=== PATIENT | female | born 1990 | race Two or more races ===

== ENCOUNTER 2022-05-17 23:00 | Outpatient (CLI) | payer OTHER ==
[2022-05-17] MEDS ORDERED: PRENATAL TABLE1 EAC1 PO (23:11)
[2022-05-17] MEDS ORDERED: TRANDATE300 MG PO (23:12)
== END 2022-05-19 17:37 | disposition home or self-care (01) ==
LOC: OBS/DEL 23:00
PROVIDERS: ATTEND Obstetrics & Gynecology
DX: O26.892 Other specified pregnancy related conditions, second trimester (principal); Z3A.26 26 weeks gestation of pregnancy; R10.12 Left upper quadrant pain; R11.2 Nausea with vomiting, unspecified; E86.0 Dehydration

== ENCOUNTER 2022-07-02 16:32 | Outpatient (CLI) | payer OTHER ==
[~2022-07-02 16:32] MED LIST: PRENATAL TABLE1 EAC1 PO; TRANDATE300 MG PO
== END 2022-07-02 17:35 | disposition home or self-care (01) ==
LOC: NST 16:32
PROVIDERS: ATTEND Obstetrics & Gynecology Maternal & Fetal Medicine
DX: Z34.83 Encounter for supervision of other normal pregnancy, third trimester (principal)

== ENCOUNTER 2022-07-12 16:24 | Outpatient (CLI) | payer OTHER | END 2022-07-12 17:23 | disposition home or self-care (01) | LOC: NST 16:24 | PROVIDERS: ATTEND Obstetrics & Gynecology Gynecology | DX: Z34.83 Encounter for supervision of other normal pregnancy, third trimester (principal) ==

== ENCOUNTER 2022-07-19 14:20 | Outpatient (CLI) | payer OTHER | END 2022-07-19 14:43 | disposition home or self-care (01) | LOC: NST 14:20 | PROVIDERS: ATTEND Obstetrics & Gynecology Gynecology | DX: Z34.83 Encounter for supervision of other normal pregnancy, third trimester (principal) ==

== ENCOUNTER 2022-08-09 16:28 | Outpatient (CLI) | payer OTHER | END 2022-08-09 18:06 | disposition home or self-care (01) | LOC: NST 16:28 | PROVIDERS: ATTEND Obstetrics & Gynecology | DX: Z34.83 Encounter for supervision of other normal pregnancy, third trimester (principal) ==

== ENCOUNTER 2022-08-10 13:45 | Inpatient (IN) | payer OTHER ==
[~2022-08-10] VITALS: Ht 162.6 cm; Wt 146.1 kg
[2022-08-14] MEDS ORDERED: VITAMIN C500 M1 PO (17:20)
[2022-08-14] MEDS ORDERED: ADULT LOW DOSE81 M1 PO (17:20)
[2022-08-14] MEDS ORDERED: ALLEGRA ALLERGY60 MG PO (17:22)
== END 2022-08-17 11:18 | disposition home or self-care (01) | DRG 788 ==
LOC: OB/GYN 08-14 13:45 → LDR 08-14 15:39 → OB/GYN 08-15 14:52
PROVIDERS: ADMIT Obstetrics & Gynecology; ATTEND Obstetrics & Gynecology
PROC: 4A1HXCZ Monitoring of Products of Conception, Cardiac Rate, External Approach (ICD-10-PCS; 2022-08-14)
PROC: 10D00Z1 Extraction of Products of Conception, Low, Open Approach (ICD-10-PCS; principal; 2022-08-15 15:00)
DX: O10.02 Pre-existing essential hypertension complicating childbirth (principal); Z3A.37 37 weeks gestation of pregnancy; Z37.0 Single live birth; Z20.822 Contact with and (suspected) exposure to COVID-19